=== PATIENT | male | born 1995 | race Caucasian/White ===

== ENCOUNTER 2017-05-20 12:01 | Emergency (ER) | payer SELFPAY ==
[2017-05-20 12:22] VITALS: BP 118/85
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
[2017-05-20] MEDS ORDERED: IBUPROFEN 800 MG TABLET PO ONE (14:10)
[2017-05-20] MEDS ORDERED: ACETAMINOPHEN 325 MG TABLET PO ONE (14:10)
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
== END 2017-05-20 14:37 | disposition home or self-care (01) ==
LOC: ER 12:01
DX: S02.2XXA Fracture of nasal bones, initial encounter for closed fracture (principal); Y04.2XXA Assault by strike against or bumped into by another person, initial encounter; Y92.59 Other trade areas as the place of occurrence of the external cause; F17.200 Nicotine dependence, unspecified, uncomplicated
CPT/HCPCS: 70486; 99284

== ENCOUNTER 2017-07-03 14:53 | Emergency (ER) | payer SELFPAY ==
--- NOTE | 2017-07-03 16:41 | ER Document Report ---
ED Skin Rash/Insect Bite/Abscs - General Chief Complaint: Rash Stated Complaint: SKIN PROBLEM Time Seen by Provider: 07/03/17 16:23 Mode of Arrival: Ambulatory Information source: Patient TRAVEL OUTSIDE OF THE [place] IN LAST 30 DAYS: No - HPI Patient complains to provider of: Skin rash/lesion Notes: Patient is here with complaints of rash. He states that started approximately a week ago and seems to be spreading and getting worse. This point the rash is pretty much diffuse. He denies any rash to his palms or soles. He states the rash does not hurt or itch. He denies any fevers. He denies any nausea, vomiting, diarrhea. He denies any difficulty breathing or swallowing. No sore throat. No headache. No blurred or loss vision. Patient states that he is sexually active with both men and women. His last sexual activity was 4 months ago. No dysuria or hematuria. No penile discharge. No other complaints at this time. He denies any new soaps, detergents, lotions, medications. - Related Data Allergies/Adverse Reactions: No Known Allergies Allergy (Verified 07/03/17 14:56) Past Medical History - Social History Smoking Status: Current Every Day Smoker Chew tobacco use (# tins/day): No Frequency of alcohol use: Social Drug Abuse: Marijuana Family History: Reviewed & Not Pertinent Patient has suicidal ideation: No Patient has homicidal ideation: No Renal/ Medical History: Denies: Hx Peritoneal Dialysis - Immunizations Hx Diphtheria, Pertussis, Tetanus Vaccination: Yes Review of Systems - Review of Systems -: Yes All other systems reviewed and negative Physical Exam - Vital signs Vitals: Temp Pulse Resp BP Pulse Ox 98.8 F 69 16 119/68 98 07/03/17 15:26 07/03/17 15:26 07/03/17 15:26 07/03/17 15:26 07/03/17 15:26 - Notes Notes: GENERAL: alert, cooperative, nontoxic, no distress. HEAD: normocephalic, atraumatic EYES: conjunctiva pink without discharge, no external redness or swelling. EARS: no external swelling, no external redness NOSE: atraumatic, no external swelling MOUTH/THROAT: mucous membranes moist and pink NECK: soft, supple, full range of motion, no meningismus. CHEST: no distress, lungs clear and equal throughout. No wheezing, rales, rhonchi. CARDIAC: regular rate and rhythm, no murmur, normal capillary refill, normal pulses. BACK: full range of motion, no CVA tenderness. EXTREMITIES: full range of motion of all extremities. No redness, no swelling. NEURO: alert and oriented 3, no focal deficits, full range of motion of all extremities. PYSCH: appropriate mood, affect. Patient is cooperative. SKIN: pink, warm, dry, diffuse nonspecific red maculopapular rash. No rash to the palms or the soles. No vesicles or petechiae. Course - Re-evaluation Re-evalutation: 07/03/17 16:38 Patient is nontoxic appearing with stable vitals. The patient is here with complaints of rash for 1 week that seems to be getting worse. The rash is diffuse. He denies any pain or itching with the rash. It is a nonspecific maculopapular rash with no petechiae or vesicles. Patient is sexually active with both men and women. There is risk factors, I have ordered an RPR to rule out syphilis. He has not had any sexual intercourse in over 4 months. The RPR will be ran tomorrow, if this is positive, the patient will be contacted for appropriate treatment. Patient will be discharged home at this time. Differentials would include allergic reaction although less likely due to lack of itching. Other differentials would include nonspecific viral exanthems. Regardless at this point the patient was instructed he can try Benadryl as needed for the rash and to follow-up with his primary care doctor if the rash does not improve in the next week, sooner for worsening symptoms, high fevers, difficulty breathing or swallowing, or for any further concerns. The patient's emergency department workup and current diagnosis were explained to the patient and or family. Follow-up instructions were provided. Medications if prescribed were discussed. Instructions for when to return to the emergency department including specific worrisome symptoms were discussed with the patient and/or family. - Vital Signs Vital signs: Temp Pulse Resp BP Pulse Ox 98.8 F 69 16 119/68 98 07/03/17 15:26 07/03/17 15:26 07/03/17 15:26 07/03/17 15:26 07/03/17 15:26 Discharge - Discharge Clinical Impression: Rash and nonspecific skin eruption Condition: Stable Disposition: HOME, SELF-CARE Instructions: Viral Rash ([facility]) Additional Instructions: Try [id number] Benadryl as needed for the rash. Follow-up with your doctor if not better in 1 week, sooner for worsening symptoms, high fever, difficulty breathing or swelling, or for any further concerns. An RPR was drawn today to test for syphilis, he will be contacted if the results are positive. Forms: Smoking Cessation Education Referrals: [facility] [Provider Group] - Follow up as needed
[2017-07-03 17:32] VITALS: BP 113/75
== END 2017-07-03 17:49 | disposition home or self-care (01) ==
LOC: ER 14:53
DX: R21 Rash and other nonspecific skin eruption (principal); F17.200 Nicotine dependence, unspecified, uncomplicated
CPT/HCPCS: 36415; 86592; 99283

== ENCOUNTER 2019-02-11 22:52 | Emergency (ER) | payer SELFPAY ==
[2019-02-12] MEDS ORDERED: METOCLOPRAMIDE HCL INJ/PF 10 MG/2 ML SDV IV ONE (00:37)
[2019-02-12] MEDS ORDERED: NORMAL SALINE 1000 ML 1,000 ML IV ONE (00:37)
--- NOTE | 2019-02-12 00:38 | ER Document Report ---
ED Headache - General Chief Complaint: Headache Stated Complaint: HEADACHE Time Seen by Provider: 02/12/19 00:37 Notes: Is a 23-year-old male that comes emergency department by EMS for chief complaint of headache. He states that he suddenly woke up with a headache tonight, the headache started in the back of his head, was pounding, he vomited 3 times. He states he actually feels better now than he did before. He does not usually get headaches, he is not treated for migraines, he denies any prescribed medications or diagnosed medical problems. He states his mother gets migraines but there is no family history of CVA or aneurysm. He has had injury or fever, denies neck pain, denies focal numbness or weakness, denies visual changes. TRAVEL OUTSIDE OF THE [place] IN LAST 30 DAYS: No - Related Data Allergies/Adverse Reactions: No Known Allergies Allergy (Verified 07/03/17 14:56) Past Medical History - General Information source: Patient - Social History Smoking Status: Never Smoker Frequency of alcohol use: None Drug Abuse: None Lives with: Family Family History: Reviewed & Not Pertinent Patient has suicidal ideation: No Patient has homicidal ideation: No - Medical History Medical History: Negative Renal/ Medical History: Denies: Hx Peritoneal Dialysis Surgical Hx: Negative - Immunizations Immunizations up to date: Yes Hx Diphtheria, Pertussis, Tetanus Vaccination: Yes Review of Systems - Review of Systems Constitutional: No symptoms reported EENT: No symptoms reported Cardiovascular: No symptoms reported Respiratory: No symptoms reported Gastrointestinal: See HPI Genitourinary: No symptoms reported Male Genitourinary: No symptoms reported Musculoskeletal: No symptoms reported Skin: No symptoms reported Hematologic/Lymphatic: No symptoms reported Neurological/Psychological: See HPI Physical Exam - Vital signs Vitals: Temp Pulse Resp BP Pulse Ox 97.6 F 56 L 20 131/78 H 99 02/11/19 23:04 02/11/19 23:04 02/11/19 23:04 02/11/19 23:04 02/11/19 23:04 - Notes Notes: GENERAL: Patient squints his eyes frequently with the light but does not appear to be infrequent distress HEAD: Normocephalic, atraumatic. EYES: Pupils equal, round, and reactive to light. Extraocular movements intact. ENT: Oral mucosa moist, tongue midline. Oropharynx unremarkable. Airway patent. NECK: Full range of motion. Supple. Trachea midline. LUNGS: Clear to auscultation bilaterally, no wheezes, rales, or rhonchi. No respiratory distress. HEART: Regular rate and rhythm. No murmur ABDOMEN: Soft, non-tender. Non-distended. EXTREMITIES: Moves all 4 extremities spontaneously. No edema, normal radial and dorsalis pedis pulses bilaterally. No cyanosis. BACK: no cervical, thoracic, lumbar midline tenderness. No saddle anesthesia, normal distal neurovascular exam. Moves all extremities in full range of motion. NEUROLOGICAL: Alert and oriented x3. Normal speech. Cranial nerves II through XII grossly intact. PSYCH: Normal affect, normal mood. SKIN: Warm, dry, normal turgor. No rashes or lesions noted. Course - Re-evaluation Re-evalutation: Neurological exam is unremarkable, patient is nontoxic in appearance. However his description is concerning including sudden onset severe headache which is improved now, patient has stopped vomiting. Patient is never had imaging of his head and does not have a history of migraines. Because of his reported symptoms within the 6-hour timeframe I discussed with patient and decision was made to perform CT of the head to rule out subarachnoid hemorrhage, we will also treat the migraine. CT of the head without any acute findings. On reevaluation patient's headache did completely resolved with treatments. I discussed results, follow-up, and return precautions at length with patient. Patient states appreciation and agreement. Stable at time of discharge - Vital Signs Vital signs: Temp Pulse Resp BP Pulse Ox 97.9 F 62 16 127/98 H 100 02/12/19 03:27 02/12/19 03:27 02/12/19 03:27 02/12/19 03:27 02/12/19 03:27 Discharge - Discharge Clinical Impression: Headache Qualifiers: Headache type: unspecified Headache chronicity pattern: acute headache Intractability: not intractable Qualified Code(s): R51 - Headache Condition: Stable Disposition: HOME, SELF-CARE Additional Instructions: Your evaluation, symptoms, and resolution with treatment are very suggestive of a migraine. The imaging of your brain is normal. You can take the prescribed medication if needed for headaches in the future. Follow-up with primary care for additional evaluation and management of migraines. Return if you worsen including returned or severe headache, vomiting, fever, or any other concerning or worsening symptoms. Prescriptions: Butalb/Acetaminophen/Caffeine [Fioricet (50-325-40 mg) Tablet] 1 tab PO Q4HP PRN #20 tab PRN Reason: Forms: Return to Work
[2019-02-12 03:28] VITALS: BP 127/98
--- NOTE | 2019-02-12 11:07 | RADIOLOGY REPORT (SQ) ---
EXAM DESCRIPTION: CT HEAD WITHOUT IV CONTRAST CLINICAL INDICATION: 23-year-old male with headache and vomiting. COMPARISON: None. TECHNIQUE: CT brain without contrast. This exam was performed according to our departmental dose optimization program which includes use of automated exposure control, adjustment of the mA and/or kV according to patient size and/or use of iterative reconstruction technique. FINDINGS: Examination findings are limited by motion artifact. The ventricles, sulci, and cisterns are within normal limits. The allen-white matter differentiation is preserved. There is no mass effect, midline shift, intra- or extra-axial fluid collection/acute hemorrhage. The osseous structures are unremarkable. The paranasal sinuses and mastoid air cells are clear. IMPRESSION: No acute intracranial abnormalities.
== END 2019-02-12 04:01 | disposition home or self-care (01) ==
LOC: ER 22:52
DX: R51 Headache (principal)
CPT/HCPCS: 99284; 96361; 96374; 70450; J2765; J7030

== ENCOUNTER 2019-05-26 16:24 | Emergency (ER) | payer SELFPAY ==
--- NOTE | 2019-05-26 17:42 | ER Document Report ---
HPI - HPI Time Seen by Provider: 05/26/19 17:35 Pain Level: 3 Context: Patient is a 24-year-old male who presents emergency department with a chief complaint of right foot pain. Patient reports 3 days ago his right foot got stuck in between a gap and a gait. He reports that this affected his toes and that they were stuck in the extended position. Patient reports that initially he had a lot of swelling and bruising. Patient reports this has since improved but he continues to have a lot of pain. Patient reports he stands about 8 hours/day at work and has not been able to rest. Patient reports has been taking a 800 mg ibuprofen with his last dose being 5 AM without any relief. - MUSCULOSKELETAL Musculoskeletal: REPORTS: Extremity pain - DERM Skin Color: Normal Past Medical History - General Information source: Patient - Social History Smoking Status: Never Smoker Chew tobacco use (# tins/day): No Frequency of alcohol use: Occasional Drug Abuse: None Lives with: Family Family History: Reviewed & Not Pertinent Patient has suicidal ideation: No Patient has homicidal ideation: No - Past Medical History Cardiac Medical History: Reports: None Pulmonary Medical History: Reports: None EENT Medical History: Reports: None Neurological Medical History: Reports: None Endocrine Medical History: Reports: None Renal/ Medical History: Reports: None. Denies: Hx Peritoneal Dialysis Malignancy Medical History: Reports None GI Medical History: Reports: None Musculoskeletal Medical History: Reports None Skin Medical History: Reports None Psychiatric Medical History: Reports: None Traumatic Medical History: Reports: None Infectious Medical History: Reports: None Surgical Hx: Negative - Immunizations Immunizations up to date: Yes Hx Diphtheria, Pertussis, Tetanus Vaccination: Yes Vertical Provider Document - CONSTITUTIONAL Agree With Documented VS: Yes Exam Limitations: No Limitations General Appearance: No Apparent Distress - INFECTION CONTROL TRAVEL OUTSIDE OF THE [place] IN LAST 30 DAYS: No - HEENT HEENT: Atraumatic, Normal ENT Exam, Normocephalic, PERRLA - NECK Neck: Normal Inspection - RESPIRATORY Respiratory: Breath Sounds Normal, No Respiratory Distress - CARDIOVASCULAR Cardiovascular: Regular Rate, Regular Rhythm - GI/ABDOMEN Gastrointestinal: Abdomen Soft, Abdomen Non-Tender, Normal Bowel Sounds - MUSCULOSKELETAL/EXTREMETIES Notes: Patient has tenderness to the base of the right metatarsals, there is a yellowish disc coloration consistent with old bruising. No edema or erythema. No crepitus with palpation. Patient has a +2 dorsalis pedis and posterior tibial pulse. There is no tenderness to the ankle to include the medial and lateral malleolus. Patient does have bruising noted to the anterior aspect of the proximal tibia and fibula no deformity or pain with palpation. - NEURO Level of Consciousness: Awake, Alert, Appropriate - DERM Integumentary: Warm, Dry, No Rash Course - Re-evaluation Re-evalutation: 05/26/19 18:21 I did discuss results of the x-ray with the patient. We will place him in an marina wrap. Patient encouraged to rest his foot over the next few days as I did give him a work note. Patient verbalized understanding denies questions at this time. - Vital Signs Vital signs: Temp Pulse Resp BP Pulse Ox 98.2 F 63 20 118/62 99 05/26/19 17:02 05/26/19 17:02 05/26/19 17:02 05/26/19 17:02 05/26/19 17:02 - Diagnostic Test Radiology reviewed: Reports reviewed Radiology results interpreted by me: 05/26/19 18:21 Foot X-Ray 05/26/19 17:39 IMPRESSION: No acute fracture or dislocation of the right foot. Discharge - Discharge Clinical Impression: Right foot sprain Qualifiers: Encounter type: initial encounter Qualified Code(s): S93.601A - Unspecified sprain of right foot, initial encounter Condition: Stable Disposition: HOME, SELF-CARE Additional Instructions: *Today was seen emergency department for right foot injury. Your x-ray was negative for any acute abnormality. Your diagnosis and is likely due to a sprain. This results from stretching and tearing of ligaments usually from a twisting injury. This most likely occurred when you got your foot caught. Please take naproxen as prescribed. Naproxen as an anti-inflammatory. Please use the marina wrap to provide compression and rest over the next few days. Ice and elevate. Please use your work note to stay off of your foot over the next few days as it does require rest. SPRAIN: Your injury is a sprain. A sprain results from stretching or tearing of the ligaments, usually from a twisting injury. The ligaments will require time and protection in order to heal properly. Many sprains are quite disabling and should be taken seriously. The usual initial treatment of sprains is cold packs, elevation, and rest of the injured area. Your physician has assessed the seriousness of your ligament injury, and has outlined a treatment plan. Understand that this treatment may change, depending on how you progress. If a re-examination was recommended, it is important that you follow up as instructed. Call the doctor any time if there is severe pain, numbness, or loss of function in the injured area. MARINA WRAP: A compression dressing (marina wrap) has been placed. This helps hold the area still. It limits swelling and internal bleeding. The wrap should be comfortably snug -- not tight. You should feel a sense of pressure, but not severe pain under the wrap. Unless the physician tells you otherwise, you can adjust the wrap for comfort. If the wrap causes symptoms suggesting it's too tight -- uncomfortable pressure, swelling or discoloration beyond the wrap, numbness, or severe pain -- you must loosen the wrap. If these symptoms don't resolve promptly, return for re-evaluation. ICE & ELEVATION: Apply ice packs frequently against the painful area. Many different schedules are recommended, such as "20 minutes on, 20 minutes off" or "one hour ice, two hours rest." If you need to work, you may need to go longer between ice treatments. You should plan to have the area ice packed AT LEAST one-fourth of the time. The ice should be applied over the wrap, tape, or splint, or over a layer of cloth -- not directly against the skin. Some ice bags have a built-in cloth and can be put directly on the skin. Your injured part should be elevated as much as possible over the next 48 hours. Try to keep the injury above the level of the heart. Avoid use of the injured area. Elevation and rest will decrease the swelling. USE OF [id number] IBUPROFEN: Ibuprofen (Advil, Nuprin, Medipren, Motrin IB) is a medication for fever and pain control. In addition, it has anti- inflammatory effects which may be beneficial, especially in the treatment of injuries. It's best to take ibuprofen with food. Persons with ulcer disease or allergy to aspirin should notify their physician of this before taking ibuprofen. Ibuprofen can be given every four to six hours, for a total of four doses daily. Age Pain or fever dose Antiinflammatory dose 6-8 yr 200 mg (1 tab) 200 mg (1 tab) 9-11 yr 200 mg (1 tab) 200-400 mg (1-2 tab) 11-14 yr 200-400 mg (1-2 tab) 400 mg (2 tab) 15-adult 400 mg (2 tab) 600 mg (3 tab) FOLLOW-UP CARE: If you have been referred to a physician for follow-up care, call the physicians office for an appointment as you were instructed or within the next two days. If you experience worsening or a significant change in your symptoms, notify the physician immediately or return to the Emergency Department at any time for re-evaluation. Prescriptions: Naproxen 500 mg PO BID PRN #14 tablet PRN Reason: Forms: Return to Work
--- NOTE | 2019-05-26 18:09 | RADIOLOGY REPORT (SQ) ---
EXAM DESCRIPTION: FOOT RIGHT COMPLETE COMPLETED DATE/TIME: 05/26/2019 4:48 pm REASON FOR STUDY: right foot pain. Crushing injury. Dorsal pain. COMPARISON: None. NUMBER OF VIEWS: Three views. TECHNIQUE: AP, lateral and oblique radiographic images acquired of the right foot. LIMITATIONS: None. FINDINGS: MINERALIZATION: Normal. BONES: No acute fracture or dislocation. There is a well corticated ossific density at the anterior beak of the talus, probably a chronic avulsion fracture. No associated soft tissue swelling. No lyt ic or blastic bone lesion. JOINTS: No effusions. SOFT TISSUES: No soft tissue swelling. No foreign body. OTHER: No other significant finding. IMPRESSION: No acute fracture or dislocation of the right foot. TECHNICAL DOCUMENTATION: JOB ID: [id number] [employer]- All Rights Reserved Reading location - IP/workstation name: [email or web address]
[2019-05-26 18:36] VITALS: BP 118/71
== END 2019-05-26 18:31 | disposition home or self-care (01) ==
LOC: ER 16:24
DX: S93.601A Unspecified sprain of right foot, initial encounter (principal); S80.10XA Contusion of unspecified lower leg, initial encounter; W23.1XXA Caught, crushed, jammed, or pinched between stationary objects, initial encounter
CPT/HCPCS: 99283